=== PATIENT | female | born 1980 | race Caucasian/White ===

== ENCOUNTER 2022-12-01 20:43 | Emergency (ER) | payer BC ==
[~2022-12-01] VITALS: Ht 152.4 cm; Wt 69.0 kg
[2022-12-01 21:01] VITALS: O2SAT 99
[2022-12-01 21:44] LABS: BASOPHILS % 0.9 % (0.0-2.0); EOSINOPHILS % 1.6 % (0.0-5.0); HEMATOCRIT. 41.4 % (36.0-48.0); HEMOGLOBIN. 13.9 g/dL (12.0-16.0); LYMPHOCYTES % 44.8 % (20.0-50.0); MEAN CORPUSCULAR HEMOGLOBIN 29.6 pg (28.0-32.0); MEAN CORPUSCULAR VOLUME 88.4 fL (81.0-99.0); MONOCYTES % 6.9 % (2.0-8.0); NEUTROPHILS % 45.8 % (40.0-76.0); PLATELET 295 x1000/uL (130-400); RED BLOOD CELL COUNT 4.68 mill/uL (4.2-5.4); RED CELL DISTRIBUTION WIDTH 13.7 % (11.6-14.6)
[2022-12-01 21:46] LABS: CHLORIDE 104 mEq/L (98-107)
[2022-12-02] MEDS ORDERED: NAPR-1176 MT (03:09)
[2022-12-02 03:10] VITALS: BP 160/76; PULSE 85; RESP 18; TEMP 98.9
== END 2022-12-02 03:24 | disposition home or self-care (01) ==
LOC: ER 20:43
DX: R07.89 Other chest pain (principal); I10 Essential (primary) hypertension; E78.00 Pure hypercholesterolemia, unspecified
CPT/HCPCS: 36415; 71045; 80053; 84484; 85025; 93005; 99285

== ENCOUNTER 2024-10-27 22:20 | Emergency (ER) | payer BC ==
[~2024-10-27] VITALS: Ht 152.4 cm; Wt 58.0 kg
[~2024-10-27 22:20] MED LIST: NAPR-1176 MT
[2024-10-27 22:40] VITALS: O2SAT 99
[2024-10-27 23:58] LABS: BASOPHILS % 1.5 % (0.0-2.0); EOSINOPHILS % 1.7 % (0.0-5.0); HEMATOCRIT. 37.4 % (36.0-48.0); HEMOGLOBIN. 12.7 g/dL (12.0-16.0); LYMPHOCYTES % 52.5 % (20.0-50.0); MEAN CORPUSCULAR HEMOGLOBIN 30.2 pg (28.0-32.0); MEAN CORPUSCULAR HGB CONC 33.9 g/dL (31.0-37.0); MEAN PLATELET VOLUME 9.5 fl (7.4-10.4); MONOCYTES % 7.5 % (2.0-8.0); NEUTROPHILS % 36.8 % (40.0-76.0); PLATELET 284 x1000/uL (130-400); RED BLOOD CELL COUNT 4.21 mill/uL (4.2-5.4); RED CELL DISTRIBUTION WIDTH 13.6 % (11.6-14.6); WHITE BLOOD COUNT 10.5 x1000/uL (4.5-11.0)
[2024-10-28 00:07] LABS: CARBON DIOXIDE 28 mEq/L (21-32); CHLORIDE 104 mEq/L (98-107); POTASSIUM 3.7 mEq/L (3.5-5.1); SODIUM 138 mEq/L (136-145)
[2024-10-28 00:08] LABS: CALCIUM 9.7 mg/dL (8.7-10.4)
[2024-10-28 00:13] LABS: CREATININE 0.6 mg/dL (0.6-1.0); GLUCOSE 103 mg/dL (70-105); UREA NITROGEN BLOOD 17 mg/dL (9-23)
[2024-10-28 00:21] LABS: TROPONIN I HIGH SENSITIVITY < 4 ng/L (3.0-34)
[2024-10-28 01:52] VITALS: BP 143/80; PULSE 71; RESP 18; TEMP 36.7; O2SAT 100
== END 2024-10-28 01:55 | disposition home or self-care (01) ==
LOC: ER 22:20
DX: R91.1 Solitary pulmonary nodule (principal); R20.8 Other disturbances of skin sensation; E78.00 Pure hypercholesterolemia, unspecified; I10 Essential (primary) hypertension; Z87.891 Personal history of nicotine dependence
CPT/HCPCS: 36415; 71045; 80048; 84484; 85025; 85379; 93005; 99284

== ENCOUNTER 2025-03-30 22:12 | Emergency (ER) | payer BC ==
[~2025-03-30] VITALS: Ht 152.4 cm; Wt 58.0 kg
[2025-03-30 22:15] VITALS: TEMP 37.3; O2SAT 99
[2025-03-30 23:18] VITALS: BP 139/85; PULSE 89; RESP 16; O2SAT 97
== END 2025-03-30 23:25 | disposition home or self-care (01) ==
LOC: ER 22:12
DX: J02.9 Acute pharyngitis, unspecified (principal); M79.10 Myalgia, unspecified site; R05.9 Cough, unspecified; I10 Essential (primary) hypertension; Z79.1 Long term (current) use of non-steroidal anti-inflammatories (NSAID)
CPT/HCPCS: 99282